=== PATIENT | male | born 1945 | race Caucasian/White ===

== ENCOUNTER 2019-03-11 11:30 | Day surgery (SDC) | payer MEDICARE ==
[~2019-03-11] VITALS: Ht 177.8 cm; Wt 75.5 kg
[~2019-03-11 11:30] MED LIST: TRELEGY ELLIPT1 EACH
--- NOTE | 2019-03-11 15:02 | NUR ---
03/11/19 1502 Chantelle Hess PATIENT WAS C/O THROUGHOUT AND WAS SUCTIONED OF SOME THICK MUCOUS
--- NOTE | 2019-03-11 15:59 | NUR ---
03/11/19 1559 Chantelle Hess PATIENT HAD CONTINUED DEEP COUGH AFTER PROCEDURE. HE WAS COUGHING UP CLEAR THICK MUCOUS AND BLOWING HIS NOSE A LOT. I DID DISCUSS THIS WITH PATIENT AND HIS . HE WAS CLEAR THROUGHOUT ON AUSCULTATION. I ADVISED TO THINK ABOUT USING HIS RESCUE INHALER WHEN HE GOT HOME AND ALSO DRINK SOME FLUIDS TO HELP THINGS. BOTH AND PATIENT VERBALIZED UNDERSTANDING. I ENCOURAGED THEM TO CALL DR BAE IF ANY PROBLEMS THIS EVENING AND HIS ENSURED ME SHE WOULD. PATIENT DISCHARGED IN STABLE CONDITION
== END 2019-03-11 15:25 | disposition home or self-care (01) ==
LOC: ORSCSDS 11:30
PROVIDERS: Internal Medicine Gastroenterology
PROC: 0DJ08ZZ Inspection of Upper Intestinal Tract, Via Natural or Artificial Opening Endoscopic (ICD-10-PCS; principal; 2019-03-11 13:00)
DX: K74.60 Unspecified cirrhosis of liver (principal); I85.00 Esophageal varices without bleeding; K44.9 Diaphragmatic hernia without obstruction or gangrene; J44.9 Chronic obstructive pulmonary disease, unspecified; Z87.891 Personal history of nicotine dependence; B19.20 Unspecified viral hepatitis C without hepatic coma; Z79.899 Other long term (current) drug therapy
CPT/HCPCS: J2704; J7120